=== PATIENT | male | born 1985 | race Caucasian/White ===

== ENCOUNTER 2017-05-20 01:54 | Emergency (ER) | payer SELFPAY ==
[2017-05-20 02:01] VITALS: TEMP 98; O2SAT 98
--- NOTE | 2017-05-20 02:05 | ED.PDOC ---
History of Present Illness - General Chief Complaint: Laceration Stated Complaint: LW laceration c box knife Time Seen by Provider: 05/20/17 02:04 Source: patient Exam Limitations: no limitations - History of Present Illness Initial Comments: Heron Clark 31 y/o male stated accidentally cut left wrist with padded box sewer while helping nephew assemble a toy at home.Noted laceration /bleeding left wrist area with sharp pain on movement wrist left. Timing/Duration: just prior to arrival, this evening Severity: moderate Location: extremities - left upper extremity-foerearm/wrist area Improving Factors: immobilization Worsening Factors: movement Associated Symptoms: other - see hpi Allergies/Adverse Reactions: Allergies NO KNOWN ALLERGY Allergy (Verified 05/20/17 02:02) Home Medications: Ambulatory Orders NK [NK] 05/20/17 Review of Systems - Review of Systems Constitutional: States: no symptoms reported EENTM: States: blurred vision - keratoconus-chronic Respiratory: States: no symptoms reported Cardiology: States: no symptoms reported Skin: States: see HPI All other Systems: Reviewed and Negative, No Change from Baseline Past Medical History (General) - Patient Medical History Hx Seizures: No Hx Stroke: No Hx Dementia: No Hx Asthma: No Hx of COPD: No Hx Cardiac Disorders: No Hx Congestive Heart Failure: No Hx Pacemaker: No Hx Hypertension: No Hx Thyroid Disease: No Hx Diabetes: No Hx Gastroesophageal Reflux: No Hx Renal Disease: No Hx of HIV: No Hx MRSA: No Hx Other PMH: Yes - eye problem Surgical History: other - ORIF -foot fracture - Vaccination History Hx Tetanus, Diphtheria Vaccination: Yes - 2017 Hx Influenza Vaccination: No - Social History Hx Tobacco Use: Yes Hx Alcohol Use: No Family Medical History - Family History Mother Family History: Unknown Physical Exam - Physical Exam General Appearance: Alert, Comfortable, No apparent distress Eyes, Ears, Nose, Throat Exam: normal ENT inspection Neck: non-tender, supple Cardiovascular/Chest: normal peripheral pulses, regular rate, rhythm, no murmur Respiratory: lungs clear Gastrointestinal/Abdominal: non tender, soft, no organomegaly Extremity: no pedal edema, no calf tenderness, other - moves all fingers Neurologic: no motor/sensory deficits - distally, alert, oriented x 3 Skin Exam: other - 7 cm laceration left forearm/wrist area Skin Problem Location: other - left ue Progress - Progress Progress: 05/20/17 03:10 Vital Signs - 8 hr 05/20/17 01:55 Temperature 98.0 F Pulse Rate [ 98 H monitor] Respiratory 20 Rate Blood Pressure 155/108 [Right Arm] O2 Sat by Pulse 98 Oximetry Procedures - Laceration/Wound Repair Left Wrist Wound Length (cm): 7 - fascial layer Wound's Depth, Shape: linear Wound Explored: clean Irrigated w/ Saline (cc's): 50 Betadine Prep?: No - hibiclens Anesthesia: Lidocaine w/ Epi Volume Anesthetic (cc's): 10 Wound Repaired With: sutures, lali - skin layer Number of Sutures: 8 Layer Closure?: Yes Deep Layer Suture Size/Type: 4:0, vicryl rapide Number Deep Layer Sutures: 8 Sterile Dressing Applied?: Yes Departure - Departure Clinical Impression: Laceration of wrist, left, complicated Qualifiers: Encounter type: initial encounter Qualified Code(s): S61.512A - Laceration without foreign body of left wrist, initial encounter Time of Disposition: 03:14 Disposition: Discharge to Home or Self Care Condition: Good Departure Forms: ED Discharge - Pt. Copy, Patient Portal Self Enrollment Instructions: DI for Laceration Repair Referrals: PARUL SÁNCHEZ IV, CONSULTING [employer]INE[employer] [Primary Care Provider] - 1-2 Weeks Home Medications: Ambulatory Orders NK [NK] 05/20/17 Additional Instructions: Removal of lali 06/01/17 [facility] [place];Elevate left forearm 20 degrees at bedtime; Return to ER as needed;May take Aleve (otc)1-2 tablets am/pm for pain as needed
[2017-05-20] MEDS ORDERED: LIDOCAINE 1% W/ EPINEPHRINE 20 ML VIAL INJ ONE (02:06)
[2017-05-20] MEDS ORDERED: CHLORHEXIDINE GLUCONATE 4 % 15 ML UD TOP ONE (02:12)
[2017-05-20] MEDS ORDERED: NEOMYCIN-BACITRACIN-POLYMYXIN 0.9 GM UD TOP ONE (02:47)
[2017-05-20] MEDS ORDERED: CEPHALEXIN MONOHYDRATE 500 MG CAP PO ONE (03:14)
[2017-05-20] MEDS ORDERED: HYDROcodone 10MG/APAP 325MG 1 EA TAB PO ONE (03:14)
[2017-05-20] MEDS ORDERED: HYDROCOD/APAP 7.5/325 (ER DISP) #3 TAB PO ONE (03:14)
[2017-05-20 03:43] VITALS: BP 143/82
== END 2017-05-20 03:43 | disposition home or self-care (01) ==
LOC: ER 01:54
DX: S61.512A Laceration without foreign body of left wrist, initial encounter (principal); W45.8XXA Other foreign body or object entering through skin, initial encounter; Y92.009 Unspecified place in unspecified non-institutional (private) residence as the place of occurrence of the external cause

== ENCOUNTER → 2018-09-08 | Outpatient (CLI) | payer OTHER | LOC: YCFC.O 11:50 | PROVIDERS: ATTEND Family Medicine | DX: Z01.818 Encounter for other preprocedural examination (principal); F19.21 Other psychoactive substance dependence, in remission ==